=== PATIENT | female | born 1990 | race Caucasian/White ===

== ENCOUNTER 2018-09-12 15:06 | Observation (INO) | payer OTHER ==
[~2018-09-12] VITALS: Ht 160 cm; Wt 74.6 kg
[~2018-09-12 15:06] MED LIST: AMOX1TAB61 PO; IBUP-1222 PO; OXYC-302 PO
[2018-09-12] MEDS ORDERED: DIPHENHYDRAMINE 50 MG/ML, 1ML ONE (15:19)
[2018-09-12] MEDS ORDERED: PHENYLEPHRINE 10 MG/ML ONE (15:19)
[2018-09-12] MEDS ORDERED: CEFAZOLIN 1,000 MG ONE (15:19)
[2018-09-12] MEDS ORDERED: SUCCINYLCHOLINE 20 MG/ML, 10ML ONE (15:19)
[2018-09-12] MEDS ORDERED: DEXAMETHASONE 4 MG/ML, 1ML ONE (15:19)
[2018-09-12] MEDS ORDERED: ROCURONIUM 10MG/ML,5ML ONE (15:19)
[2018-09-12] MEDS ORDERED: ONDANSETRON 2MG/ML, 2ML ONE ×3 (15:19→17:45)
[2018-09-12] MEDS ORDERED: PROPOFOL 10 MG/ML, 20ML ONE (15:19)
--- NOTE | 2018-09-12 15:28 | NUR ---
Pt BIB [facility] for VB and syncope. Pt was 13 weeks and the fetus was not developed correctly, OB had pt start taking Cytotec to abort. Pt started bleeding today, had a syncopal episode and hit forehead, and vomited x 1. Pt was given 1000 ml NS. bp 100/60, hr 80s, fs 94. 3, para 2. Pt denies dizziness, and nausea. Pt is alert, oriented, with NAD.
[2018-09-12] MEDS ORDERED: ACETAMINOPHEN 500 MG TABLET PO ONE (15:30)
[2018-09-12] MEDS ORDERED: ACETAMINOPHEN 500 MG TABLET ONE (15:32)
--- NOTE | 2018-09-12 15:33 | NUR ---
LAB AT BEDSIDE.
--- NOTE | 2018-09-12 15:40 | NUR ---
PT DOES NOT WANT TO TAKE THE TYLENOL RIGHT NOW.
[2018-09-12 15:46] LABS: BASOPHILS # (AUTO) 0.04 x10^3/uL (0-0.1); BASOPHILS % (AUTO) 0 % (0-1); EOSINOPHILS # (AUTO) 0.05 x10^3/uL (0-0.4); EOSINOPHILS % (AUTO) 0 % (1-7); LYMPHOCYTES # (AUTO) 2.31 x10^3/uL (1-3.4); LYMPHOCYTES % (AUTO) 19 % (22-44); MD NO; MEAN CORPUSCULAR HEMOGLOBIN 30.4 pg (27.0-34.8); MEAN CORPUSCULAR HGB CONC 34.5 g/dL (32.4-35.8); MEAN CORPUSCULAR VOLUME 88.2 fL (80-100); MEAN PLATELET VOLUME 8.6 fL (7.4-10.4); MONOCYTES # (AUTO) 0.71 x10^3/uL (0.2-0.8); MONOCYTES % (AUTO) 6 % (2-9); NEUTROPHILS # (AUTO) 8.87 x10^3/uL (1.8-6.8); NEUTROPHILS % (AUTO) 74 % (42-75); PLATELET COUNT 242 x10^3/uL (130-400); RED BLOOD COUNT 4.08 x10^6/uL (3.82-5.3); RED CELL DISTRIBUTION WIDTH 13.3 % (9.6-15.2)
[2018-09-12 15:56] LABS: ALANINE AMINOTRANSFERASE 19 U/L (12-78); ALBUMIN 3.2 g/dL (3.4-5.0); ANION GAP 6 mmol/L (5-15); CALCIUM 8.3 mg/dL (8.5-10.1); CHLORIDE 110 mmol/L (98-107); CREATININE 0.58 mg/dL (0.55-1.02)
--- NOTE | 2018-09-12 15:58 | NUR ---
Report given to Lorraine DENISE. Pt transferred to TR02.
[2018-09-12 15:59] LABS: ALKALINE PHOSPHATASE 99 U/L (45-117); BILIRUBIN,TOTAL 0.2 mg/dL (0.2-1.0); TOTAL PROTEIN 6.4 g/dL (6.4-8.2)
--- NOTE | 2018-09-12 15:59 | NUR ---
CT PENDING: RN WITH PATIENT STARTING IV
[2018-09-12] MEDS ORDERED: SODIUM CHLORIDE FLUSH 10ML SYR IVF ONE (16:00)
[2018-09-12] MEDS ORDERED: ONDANSETRON 2MG/ML, 2ML IVPush ONE ×2 (16:00→18:00)
[2018-09-12] MEDS ORDERED: SODIUM CHLORIDE 0.9% 1,000ML IVBOLUS ONE (16:00)
[2018-09-12 16:09] LABS: INTERNATIONAL NORMALIZED RATIO 1.18 (0.93-1.1); PROTHROMBIN TIME 12.3 Seconds (9.6-11.5)
--- NOTE | 2018-09-12 16:32 | NUR ---
Pt back to room from imaging.
--- NOTE | 2018-09-12 16:32 | NUR ---
LATE ENTRY: PT CARE 1600: Pt moved to T02, attempt to start 2nd IV unsuccessful. BP: 84/48, pt in trendelenburg position. HR 97, 100% on RA. 1615: US guided IV started to right upper arm. 2nd liter bolus running. 1618: Pt to imaging, via darshan, with this RN, EMTA student, and technology professional. 1625: US IV in right upper arm noted to be infiltrated after movement in CT. IVF stopped.
--- NOTE | 2018-09-12 16:34 | NUR ---
LATE ENTRY 1555. PT GOT UP TO BEDSIDE COMMODE. PT HAD DIARRHEA. PT REPORTS NOT FEELING WELL. WENT TO GET PT BACK TO THE BED. PATIENT HAS LOC. PTS HELPED NURSE TO GET PT BACK INTO THE BED. CALLED FOR HELP. PA AT BEDSIDE. 1L NS VERBAL ORDERED AND RUNNING. REQUESTED 2ND IV. CHARGE NURSE, TECH AND TRAUMA NURSE AT BESIDE. BP 55/26, HR 81.
--- NOTE | 2018-09-12 16:37 | NUR ---
XR at bedside.
--- NOTE | 2018-09-12 16:52 | NUR ---
EDTA at bedside for EKG.
[2018-09-12] MEDS ORDERED: prenatals PO (17:08)
--- NOTE | 2018-09-12 17:28 | NUR ---
Dr. Calles at bedside to discuss ED findings and POC.
--- NOTE | 2018-09-12 17:39 | NUR ---
Dr. Whyte at bedside to evaluate pt for admission.
--- NOTE | 2018-09-12 17:54 | NUR ---
Telephone SBAR report given to RN, OR. Mei
[2018-09-12] MEDS ORDERED: SILVER NITRATE STICK TP ONE (18:01)
[2018-09-12] MEDS ORDERED: METHYLERGONOVINE 0.2 MG/ML IM ONE (18:01)
[2018-09-12] MEDS ORDERED: OXYTOCIN 10 UNITS/ML, 1ML ONE (18:01)
[2018-09-12] MEDS ORDERED: MISOPROSTOL 200 MCG TABLET ONE (18:01)
--- NOTE | 2018-09-12 18:03 | NUR ---
At time of IV insertion pt became nauseous and felt like she was going to syncope. Pt vomited, placed back in trendelenburg position, BP rechecked and found to be 75/46. Pt continues to look very pale. After 1 bout of emesis, pt denies feeling nauseous anymore, states she's "just tired." Pt aware of plan to go to OR.
--- NOTE | 2018-09-12 18:13 | NUR ---
Pt to OR with OR tech and SORT OPERATIONS SUPERVISOR, , Harley, with pt.
[2018-09-12] MEDS ORDERED: MIDAZOLAM 1 MG/ML, 2ML ONE (18:15)
[2018-09-12] MEDS ORDERED: FENTANYL PF 100 MCG/2ML ONE (18:15)
[2018-09-12] MEDS: LACTATED RINGERS 1,000 ML IV SCH ×2 (18:58→22:35)
[2018-09-12] MEDS ORDERED: KETOROLAC 30 MG/1 ML IVPush PRN (19:00)
[2018-09-12] MEDS ORDERED: IBUPROFEN 600 MG TABLET PO PRN (19:00)
[2018-09-12] MEDS ORDERED: morphine SULFATE 10 MG/ML, 1ML IVPush PRN (19:00)
[2018-09-12] MEDS ORDERED: ONDANSETRON 2MG/ML, 2ML IVPush PRN (19:00)
[2018-09-12] MEDS ORDERED: OXYcodone/APAP 5/325MG TABLET PO PRN (19:00)
[2018-09-12] MEDS ORDERED: PROMETHAZINE 12.5 MG SUPP PR PRN (19:30)
[2018-09-12] MEDS ORDERED: EPHEDRINE 50 MG/ML, 1ML IVPush PRN (19:30)
[2018-09-12] MEDS ORDERED: HALOPERIDOL 5 MG/ML IV PRN (19:30)
[2018-09-12] MEDS ORDERED: MEPERIDINE/PF 25MG/0.5ML IVPush PRN (19:30)
[2018-09-12] MEDS ORDERED: MORPHINE SULFATE 4 MG/ML, 1ML IVPush PRN (19:30)
[2018-09-12] MEDS ORDERED: hydrALAzine 20 MG/ML, 1ML IV PRN (19:30)
[2018-09-12] MEDS ORDERED: ONDANSETRON ODT 8 MG PO PRN (19:30)
[2018-09-12] MEDS ORDERED: DIAZEPAM 5 MG/ML, 2ML IVPush PRN (19:30)
[2018-09-12] MEDS ORDERED: MIDAZOLAM 1 MG/ML, 2ML IV PRN (19:30)
[2018-09-12] MEDS ORDERED: PROMETHAZINE 25 MG/ML, 1ML IV PRN (19:30)
[2018-09-12] MEDS ORDERED: OXYcodone 5 MG/5 ML ORAL.SOL UDC PO PRN (19:30)
[2018-09-12] MEDS ORDERED: HYDROmorphone 2 MG/ML, 1ML IVPush PRN (19:30)
[2018-09-12] MEDS ORDERED: LABETALOL 5MG/ML, 20ML IV PRN (19:30)
[2018-09-12] MEDS ORDERED: ONDANSETRON 2MG/ML, 2ML IV PRN (19:30)
[2018-09-12] MEDS ORDERED: ACETAMINOPHEN 325 MG TABLET PO PRN (19:30)
[2018-09-12] MEDS ORDERED: FENTANYL PF 100 MCG/2ML IV PRN (19:30)
[2018-09-12] MEDS ORDERED: ALBUTEROL SULFATE 2.5 MG/3 ML NPPB PRN (19:30)
[2018-09-12 20:32] VITALS: BP 88/62
[2018-09-12] MEDS: IBUPROFEN 600 MG TABLET PO SCH (21:00)
[2018-09-12] MEDS ORDERED: LACTATED RINGERS 500 ML IVBOLUS ONE (21:30)
[2018-09-13 02:41] VITALS: BP 80/49
[2018-09-13 05:09] VITALS: BP 82/51
[2018-09-13] MEDS: LACTATED RINGERS 1,000 ML IV SCH (05:14)
[2018-09-13 05:20] LABS: BASOPHILS % (AUTO) 0 % (0-1); EOSINOPHILS # (AUTO) 0.17 x10^3/uL (0-0.4); EOSINOPHILS % (AUTO) 3 % (1-7); LYMPHOCYTES # (AUTO) 0.92 x10^3/uL (1-3.4); LYMPHOCYTES % (AUTO) 13 % (22-44); MD NO; MEAN CORPUSCULAR HEMOGLOBIN 29.9 pg (27.0-34.8); MEAN CORPUSCULAR HGB CONC 33.9 g/dL (32.4-35.8); MEAN CORPUSCULAR VOLUME 88.4 fL (80-100); MEAN PLATELET VOLUME 8.6 fL (7.4-10.4); MONOCYTES # (AUTO) 0.21 x10^3/uL (0.2-0.8); MONOCYTES % (AUTO) 3 % (2-9); NEUTROPHILS # (AUTO) 5.69 x10^3/uL (1.8-6.8); NEUTROPHILS % (AUTO) 81 % (42-75); PLATELET COUNT 165 x10^3/uL (130-400); RED BLOOD COUNT 3.15 x10^6/uL (3.82-5.3); RED CELL DISTRIBUTION WIDTH 13.9 % (9.6-15.2)
[2018-09-13] MEDS: IBUPROFEN 600 MG TABLET PO SCH (06:00)
[2018-09-13 07:46] VITALS: BP 94/63
[2018-09-13 08:11] VITALS: BP 93/60
[2018-09-13 08:15] VITALS: BP 91/64
[2018-09-13 08:22] VITALS: BP 94/69
[2018-09-13] MEDS ORDERED: IBUP-1222 PO (09:51)
== END 2018-09-13 10:40 | disposition home or self-care (01) ==
LOC: ED 15:30 → EDIP 17:05 → 4NOR 20:17 → DCLOUNGE 09-13 10:25
PROVIDERS: ADMIT Obstetrics & Gynecology Gynecology; ATTEND Obstetrics & Gynecology Gynecology
DX: O03.4 Incomplete spontaneous abortion without complication (principal); O99.011 Anemia complicating pregnancy, first trimester; D64.9 Anemia, unspecified; Z3A.13 13 weeks gestation of pregnancy
CPT/HCPCS: 36415; 59812; 70450; 71045; 80053; 83690; 85014; 85018; 85025; 85610; 86850; 86900; 86923; 88305; 93005; 96374; 96376; 99291; G0378; J0330; J0690; J1100; J1200; J2250; J2370; J2405; J2704; J3010; J7030; J7120; P9016; J2210; J2590